=== PATIENT | male | born 1940 | race Caucasian/White ===

== ENCOUNTER → 2016-07-12 | Outpatient (CLI) | payer MEDICARE, MEDICAID | LOC: GMAM 17:01 | PROVIDERS: ATTEND Family Medicine | DX: E03.9 Hypothyroidism, unspecified (principal) ==

== ENCOUNTER → 2016-07-19 | Outpatient (CLI) | payer MEDICARE, MEDICAID | END | disposition home or self-care (01) | LOC: GMAM 18:09 | PROVIDERS: ATTEND Family Medicine | DX: D64.9 Anemia, unspecified (principal); Z12.5 Encounter for screening for malignant neoplasm of prostate | CPT/HCPCS: 82728; 83540; 83550; 85045; G0103 ==

== ENCOUNTER → 2016-08-11 | Outpatient (CLI) | payer MEDICARE, MEDICAID | END | disposition home or self-care (01) | LOC: BFHH 13:45 | PROVIDERS: ATTEND Family Medicine | DX: D64.9 Anemia, unspecified (principal) ==

== ENCOUNTER → 2016-10-11 | Outpatient (CLI) | payer MEDICARE, MEDICAID | END | disposition home or self-care (01) | LOC: GMAM 17:21 | PROVIDERS: ATTEND Family Medicine | DX: D64.9 Anemia, unspecified (principal) ==

== ENCOUNTER → 2016-11-28 | Outpatient (CLI) | payer MEDICARE, MEDICAID | END | disposition home or self-care (01) | LOC: GMA 14:36 | PROVIDERS: ATTEND Nurse Practitioner Acute Care | DX: R31.9 Hematuria, unspecified (principal) ==

== ENCOUNTER → 2016-12-13 | Outpatient (CLI) | payer MEDICARE, MEDICAID | END | disposition home or self-care (01) | LOC: BFHH 15:27 | PROVIDERS: ATTEND Family Medicine | DX: R35.0 Frequency of micturition (principal) ==

== ENCOUNTER → 2016-12-25 | Outpatient (CLI) | payer MEDICARE, MEDICAID | LOC: GMA 14:48 | PROVIDERS: ATTEND Nurse Practitioner Acute Care | DX: R31.9 Hematuria, unspecified (principal) ==

== ENCOUNTER → 2017-01-23 | Outpatient (CLI) | payer MEDICARE, MEDICAID | END | disposition home or self-care (01) | LOC: BFHH 11:24 | PROVIDERS: ATTEND Family Medicine | DX: I73.9 Peripheral vascular disease, unspecified (principal); I42.9 Cardiomyopathy, unspecified; I25.10 Atherosclerotic heart disease of native coronary artery without angina pectoris; F32.1 Major depressive disorder, single episode, moderate ==

== ENCOUNTER → 2017-02-22 | Outpatient (CLI) | payer MEDICARE, MEDICAID | LOC: RESP 13:51 | PROVIDERS: ATTEND Orthopaedic Surgery | DX: Z01.818 Encounter for other preprocedural examination (principal) ==

== ENCOUNTER → 2017-03-28 | Outpatient (CLI) | payer MEDICARE, MEDICAID | END | disposition home or self-care (01) | LOC: BFHH 15:00 | PROVIDERS: ATTEND Family Medicine | DX: I73.9 Peripheral vascular disease, unspecified (principal); I42.9 Cardiomyopathy, unspecified ==

== ENCOUNTER → 2017-07-23 | Outpatient (CLI) | payer MEDICARE, MEDICAID | LOC: BFHH 11:35 | PROVIDERS: ATTEND Family Medicine | DX: I73.89 Other specified peripheral vascular diseases (principal); I25.10 Atherosclerotic heart disease of native coronary artery without angina pectoris; E03.9 Hypothyroidism, unspecified; D64.9 Anemia, unspecified; R97.20 Elevated prostate specific antigen [PSA]; L97.512 Non-pressure chronic ulcer of other part of right foot with fat layer exposed; Z12.5 Encounter for screening for malignant neoplasm of prostate; Z72.0 Tobacco use ==

== ENCOUNTER → 2017-09-11 | Outpatient (CLI) | payer MEDICARE, MEDICAID | END | disposition home or self-care (01) | LOC: GMAM 16:38 | PROVIDERS: ATTEND Family Medicine | DX: E03.9 Hypothyroidism, unspecified (principal) ==

== ENCOUNTER 2017-10-21 15:50 | Emergency (ER) | payer MEDICARE, MEDICAID ==
--- NOTE | 2017-10-21 16:00 | ED.PDOC ---
History of Present Illness - General Chief Complaint: General Stated Complaint: Weakness, fever Time Seen by Provider: 10/21/17 15:59 Source: patient, EMS Exam Limitations: no limitations - History of Present Illness Initial Comments: Emery Peterson 77 y/o male brought by EMS after familly called that he had been feeling weak ,febrile and felt some chills since this am.No diarrhea,no N/V,no dysuria.Stated with some dry cough no hemoptysis no sob. Timing/Duration: 4-6 hours Severity: moderate Improving Factors: nothing Worsening Factors: nothing Associated Symptoms: other - see hpi Allergies/Adverse Reactions: Allergies NO KNOWN ALLERGY Allergy (Verified 12/29/15 02:04) Home Medications: Ambulatory Orders ALPRAZolam [Xanax] 0.5 mg PO PRN 12/29/15 Aspirin [Aspirin Adult Low Dose] 2 tablet PO QAM 12/29/15 Carvedilol 6.25 mg PO BID 12/29/15 Fenofibrate [Tricor] 145 mg PO QAM 12/29/15 Hydrocodone-Acetaminophen [Hydrocodone/Acetaminophen 10-325 mg] 1 - 2 each PO Q6HR PRN 12/29/15 Levothyroxine Sodium 50 mcg PO QAM 12/29/15 Metoclopramide HCl 10 mg PO BEDTIME 12/29/15 Clopidogrel Bisulfate [Plavix] 75 mg PO QAM 03/12/16 DULoxetine HCL [Cymbalta] 30 mg PO BID 03/12/16 Losartan Potassium 25 mg PO QAM 03/12/16 Esomeprazole Magnesium [Nexium] 40 mg PO QAM 02/26/17 Ezetimibe-Simvastatin [Vytorin 10-10 mg] 1 tab PO BEDTIME 02/26/17 Furosemide [Lasix] 20 mg PO PRN PRN MDD DIURESIS 02/26/17 levoFLOXacin [Levaquin] 500 mg PO DAILY 6 Days #6 tab 10/21/17 Review of Systems - Review of Systems Constitutional: States: see HPI, fever EENTM: States: no symptoms reported Respiratory: States: cough - dry Cardiology: States: no symptoms reported Gastrointestinal/Abdominal: States: no symptoms reported Musculoskeletal: States: no symptoms reported Skin: States: no symptoms reported Neurological: States: no symptoms reported All other Systems: Reviewed and Negative, No Change from Baseline Past Medical History (General) - Patient Medical History Hx Seizures: No Hx Stroke: No Hx Dementia: No Hx Asthma: No Hx of COPD: No Hx Cardiac Disorders: Yes - hx [place] Hx Congestive Heart Failure: No Hx Pacemaker: No Hx Hypertension: Yes Hx Thyroid Disease: Yes Hx Diabetes: No Hx Gastroesophageal Reflux: Yes Hx Renal Disease: No Hx Cancer: No Hx of HIV: No Hx Hepatitis C: No Hx MRSA: No Hx Other PMH: Yes - degenerative joint knee;PAD Surgical History: pacemaker, other - angioplasty - Vaccination History Hx Tetanus, Diphtheria Vaccination: No Hx Influenza Vaccination: Yes Hx Pneumococcal Vaccination: Yes - Social History Hx Tobacco Use: No Hx Chewing Tobacco Use: No Hx Alcohol Use: No Hx Substance Use: No Hx Substance Use Treatment: No Hx Depression: No Hx Physical Abuse: No Hx Emotional Abuse: No Hx Suspected Abuse: No - Activities of Daily Living Patient Lives Alone: No - - Female History Patient : No Family Medical History - Family History Mother Family History: Unknown Hx Family Cancer: Yes - mom Physical Exam - Physical Exam General Appearance: Alert, Comfortable, No apparent distress Eye Exam: bilateral normal Ears, Nose, Throat: hearing grossly normal, normal ENT inspection, normal pharynx Neck: non-tender, full range of motion, supple, normal inspection Respiratory: chest non-tender, lungs clear, no respiratory distress Cardiovascular/Chest: normal peripheral pulses, regular rate, rhythm, no murmur Peripheral Pulses: radial,right: 2+, radial,left: 2+ Gastrointestinal/Abdominal: non tender, soft, no organomegaly Back Exam: no CVA tenderness, no vertebral tenderness Extremity: no pedal edema, no calf tenderness Neurologic: alert, oriented x 3 Skin Exam: normal color, warm/dry Lymphatic: no adenopathy Progress - Progress Progress: 10/21/17 16:18 Vital Signs - 8 hr 10/21/17 15:57 Temperature 100.4 F H Pulse Rate [ 94 H Apical] Respiratory 18 Rate Blood Pressure 110/65 [Right Arm] O2 Sat by Pulse 96 Oximetry - Results/Orders Results/Orders: 10/21/17 16:00 BLOOD CULTURE Stat [facility] VIRUS AB PANEL Routine URINALYSIS Stat (Cancelled) 10/21/17 16:02 IV Care:Saline Lock per Protoc QSHIFT Sodium Chloride 0.9% 500Ml [NS 500ml] 500 ml IVS .QD Laboratory Results - last 24 hr 10/21/17 10/21/17 16:07 16:07 WBC 7.6 RBC 3.40 L Hgb 10.2 L Hct 30.2 L MCV 88.8 MCH 30.0 MCHC 33.8 RDW 15.0 H Plt Count 177 MPV 8.7 Absolute Neuts (auto) 5.90 Absolute Lymphs (auto) 0.80 L Absolute Monos (auto) 0.50 Absolute Eos (auto) 0.30 Absolute Basos (auto) 0.00 Neutrophils % 78.0 Lymphocytes % 10.8 L Monocytes % 6.9 Eosinophils % 3.8 Basophils % 0.5 PT 13.5 H INR 1.170 PTT (SP) 36.9 H Sodium 135 Potassium 4.0 Chloride 100 L Carbon Dioxide 25 Anion Gap 14.0 BUN 29 H Creatinine 1.34 H BUN/Creatinine Ratio 21.6 H Random Glucose 101 Serum Osmolality 276.1 Lactic Acid 1.2 Calcium 9.3 Magnesium 1.7 L Total Bilirubin 0.6 Direct Bilirubin 0.2 Indirect Bilirubin 0.4 AST 20 ALT 11 Alkaline Phosphatase 59 Creatine Kinase 49 CK-MB (CK-2) 1.0 CK-MB (CK-2) % Not Reportable Troponin I 0.03 Serum Total Protein 7.3 Albumin 3.4 - EKG/XRAY/CT Comments: HR-86 pacemaker ,rhythm XRAY: chest - mild chronic bronchitic changes lung base /radiologist Departure - Departure Clinical Impression: Malaise and fatigue Fever Qualifiers: Fever type: unspecified Qualified Code(s): R50.9 - Fever, unspecified Time of Disposition: 19:28 Disposition: Discharge to Home or Self Care Condition: Fair Departure Forms: ED Discharge - Pt. Copy, Patient Portal Self Enrollment Instructions: DI for Fever (Symptom) -- Adult Referrals: Tk Pickard MD [Primary Care Provider] - 1-2 Weeks Prescriptions: levoFLOXacin [Levaquin] 500 mg PO DAILY 6 Days #6 tab Home Medications: Ambulatory Orders ALPRAZolam [Xanax] 0.5 mg PO PRN 12/29/15 Aspirin [Aspirin Adult Low Dose] 2 tablet PO QAM 12/29/15 Carvedilol 6.25 mg PO BID 12/29/15 Fenofibrate [Tricor] 145 mg PO QAM 12/29/15 Hydrocodone-Acetaminophen [Hydrocodone/Acetaminophen 10-325 mg] 1 - 2 each PO Q6HR PRN 12/29/15 Levothyroxine Sodium 50 mcg PO QAM 12/29/15 Metoclopramide HCl 10 mg PO BEDTIME 12/29/15 Clopidogrel Bisulfate [Plavix] 75 mg PO QAM 03/12/16 DULoxetine HCL [Cymbalta] 30 mg PO BID 03/12/16 Losartan Potassium 25 mg PO QAM 03/12/16 Esomeprazole Magnesium [Nexium] 40 mg PO QAM 02/26/17 Ezetimibe-Simvastatin [Vytorin 10-10 mg] 1 tab PO BEDTIME 02/26/17 Furosemide [Lasix] 20 mg PO PRN PRN MDD DIURESIS 02/26/17 levoFLOXacin [Levaquin] 500 mg PO DAILY 6 Days #6 tab 10/21/17 Additional Instructions: Call up primary MD office in am October 2017 for followup;Return to ER as needed; Continue with all home medications;Tylenol 500mg one tablet every 6 hours as needed for fever
[2017-10-21] MEDS ORDERED: SODIUM CHLORIDE 0.9% 500ML 500 ML IVS PRN (16:02)
--- NOTE | 2017-10-21 16:23 | RAD ---
EXAM DESCRIPTION: Chest,1 View CLINICAL HISTORY: 77 years Male, fever COMPARISON: March 12, 2016. FINDINGS: Heart size appears borderline. There is atherosclerotic change in the thoracic aorta. Poststernotomy changes are again noted, along with a left subclavian transvenous pacemaker/AICD device. The battery pack overlies the left upper lung field. The lungs appear otherwise essentially clear except for slightly pronounced markings and possible mild peribronchial thickening in the right base. The latter is not much different than on the previous study. No major consolidation is identified. IMPRESSION: Possible mild chronic bronchitic change in the right lung base. Otherwise, no radiographic evidence of acute cardiopulmonary disease. Electronically signed by: Walker Tran MD 10/21/2017 4:21 PM CDT
[2017-10-21] MEDS ORDERED: levoFLOXacin 500MG IV 500 MG in PREMIX BAG 1 BAG IVPB ONE (18:15)
[2017-10-21] MEDS ORDERED: levoFLOXacin 500MG IV 100 ML IVPB ONE (18:27)
[2017-10-21] MEDS ORDERED: ACETAMINOPHEN 500 MG TAB PO ONE (19:43)
[2017-10-21] MEDS ORDERED: ACETAMINOPHEN 500 MG TAB ONE (19:44)
[2017-10-21 20:28] VITALS: BP 107/61; TEMP 100.9; O2SAT 95
== END 2017-10-21 20:00 | disposition home or self-care (01) ==
LOC: ER 15:50
DX: R53.81 Other malaise (principal); R50.9 Fever, unspecified; R05 Cough; I25.2 Old myocardial infarction; I10 Essential (primary) hypertension; E07.9 Disorder of thyroid, unspecified; K21.9 Gastro-esophageal reflux disease without esophagitis; Z95.0 Presence of cardiac pacemaker; Z98.61 Coronary angioplasty status; Z79.82 Long term (current) use of aspirin; Z79.02 Long term (current) use of antithrombotics/antiplatelets
CPT/HCPCS: 36415; 71045; 80048; 80076; 82550; 82553; 83605; 84484; 85025; 85610; 85730; 86788; 86789; 87040; 93005; J1956; J7040

== ENCOUNTER → 2018-04-04 | Outpatient (CLI) | payer MEDICARE, MEDICAID ==
--- NOTE | 2018-04-04 13:35 | RAD ---
EXAM DESCRIPTION: Knee,Left Complete CLINICAL HISTORY: 78 years, Male, KNEE PN COMPARISON: None TECHNIQUE: 4 views of the left knee FINDINGS: No acute fracture or dislocation or bone lesion. Minor medial and patellofemoral joint space narrowing/osteoarthritis. Tiny joint effusion. Diffuse atrophy chronic vascular calcification of the SFA, popliteal, and trifurcation vessels. Slight deformity proximal fibula from remote prior fracture which has healed. IMPRESSION: 1. Osteoarthritis-mild 2. Severe calcific atherosclerosis Electronically signed by: Julian Farrell MD 04/04/2018 1:34 PM CDT
--- NOTE | 2018-04-04 13:48 | RAD ---
EXAM DESCRIPTION: Knee,Right Complete CLINICAL HISTORY: 78 years, Male, KNEE PN COMPARISON: None TECHNIQUE: 4 views of the right knee FINDINGS: Severe osteoarthritis of the right knee all 3 compartments but especially lateral compartment which is completely collapsed. There is resulting valgus deformity. Chondrocalcinosis medial meniscus. Moderate joint effusion. No fracture or bone lesion. Severe diffuse calcific atherosclerosis. IMPRESSION: 1. Severe tricompartmental osteoarthritis with collapse of the lateral compartment Electronically signed by: Julian Farrell MD 04/04/2018 1:47 PM CDT
--- NOTE | 2018-04-04 13:49 | RAD ---
EXAM DESCRIPTION: Pelvis CLINICAL HISTORY: 78 years Male, HIP PN COMPARISON: None. FINDINGS: AP pelvis shows diffuse decreased bone density consistent with osteopenia versus osteoporosis. No fracture. No bone lesion. Severe diffuse calcific atherosclerosis. Scoliosis and degenerative and postop changes of the lower lumbar spine. IMPRESSION: Advanced chronic changes as noted-no acute finding Electronically signed by: Julian Farrell MD 04/04/2018 1:48 PM CDT
== END ==
LOC: RAD 12:22
PROVIDERS: ATTEND Orthopaedic Surgery
DX: M17.11 Unilateral primary osteoarthritis, right knee (principal); M17.12 Unilateral primary osteoarthritis, left knee; M25.561 Pain in right knee; M25.562 Pain in left knee; M25.551 Pain in right hip; M25.552 Pain in left hip

== ENCOUNTER → 2018-04-15 | Outpatient (CLI) | payer MEDICARE, MEDICAID | LOC: GMAM 12:30 | PROVIDERS: ATTEND Family Medicine | DX: E03.9 Hypothyroidism, unspecified (principal); Z12.5 Encounter for screening for malignant neoplasm of prostate | CPT/HCPCS: 84439; 84443; G0103 ==

== ENCOUNTER → 2018-05-14 | Outpatient (CLI) | payer MEDICARE, MEDICAID | LOC: RESP 15:46 | PROVIDERS: ATTEND Family Medicine | DX: Z01.818 Encounter for other preprocedural examination (principal) ==

== ENCOUNTER → 2018-07-04 | Outpatient (CLI) | payer MEDICARE, MEDICAID ==
--- NOTE | 2018-07-04 17:27 | US ---
EXAM DESCRIPTION: Extremity,Lower LT Arteries CLINICAL HISTORY: 78 years Male M79.609 COMPARISON: None. TECHNIQUE: Duplex imaging performed to evaluate the left lower extremity venous structures. Compression imaging and augmentation imaging performed. The common femoral, superficial femoral, popliteal, greater saphenous and posterior tibial veins were examined. FINDINGS: The velocity in the common femoral artery is 91 cm/s. There is a small amount of calcified plaquing. Triphasic waveforms are noted in the common femoral. There are triphasic waveforms in the proximal aspect of the superficial femoral with a normal velocity of 67 cm/s. Scattered areas of calcified and noncalcified plaque are present. There is monophasic flow in the mid and distal superficial femoral. Elevated velocity in the distal SFA consistent with a focal area of stenosis. Very minimal flow in the popliteal with a velocity 10 cm/s. Monophasic tardus parvus flow suggesting severe stenosis. Minimal monophasic flow in the region of the left peroneal. No significant flow in the posterior tibial and dorsalis pedis. IMPRESSION: Diffuse atherosclerotic plaquing throughout the left lower extremity Findings suggest stenosis in the proximal to mid superficial femoral artery with diffusely diseased superficial femoral and popliteal High-grade stenosis in the distal left SFA/proximal popliteal resulting in diminished flow in the popliteal and calf Monophasic flow with diminished velocities peroneal. No significant flow is noted in the posterior tibial or dorsalis pedis. Electronically signed by: Debbi Mosley MD 07/04/2018 5:26 PM [employer]
--- NOTE | 2018-07-04 17:27 | US ---
EXAM DESCRIPTION: Venous,Lower Extremity LT CLINICAL HISTORY: 78 years Male M79.609, left foot and toe pain COMPARISON: None. TECHNIQUE: Duplex imaging performed to evaluate the left lower extremity venous structures. Compression imaging and augmentation imaging performed. The common femoral, superficial femoral, popliteal, greater saphenous and posterior tibial veins were examined. FINDINGS: No thrombus is identified in the left lower extremity venous structures. IMPRESSION: No DVT is identified in the left lower extremity. Electronically signed by: Debbi Mosley MD 07/04/2018 5:26 PM [employer]
== END ==
LOC: US 16:13
PROVIDERS: ATTEND Physician Assistant
DX: I70.202 Unspecified atherosclerosis of native arteries of extremities, left leg (principal); I70.8 Atherosclerosis of other arteries; I73.9 Peripheral vascular disease, unspecified; M79.609 Pain in unspecified limb

== ENCOUNTER 2018-07-05 10:01 | Emergency (ER) | payer MEDICARE, MEDICAID ==
[2018-07-05] MEDS ORDERED: MORPHINE SULFATE INJ 10 MG/ML VIAL IV ONE (10:25)
--- NOTE | 2018-07-05 10:28 | ED.PDOC ---
History of Present Illness - General Time Seen by Provider: 07/05/18 10:23 Source: patient, family Exam Limitations: no limitations - History of Present Illness Initial Comments: patient comes in today for severe high-grade stenosis of the left SS8. Patient states the week ago he started noticing some pain, cramping, and swelling of his left lower extremity. Yesterday he was evaluated as an outpatient with duplex Doppler that showed high-grade stenosiswith diminished flow in the popliteal and calf. The patient was told to report to the emergency room for transfer but he did not come until this morning. Patient states the pain is becoming more and more severe despite hydrocodone that he has a home. Patient states he had no injury prior to this note any symptoms. He does have a history of coronary artery disease status post CABG. Patient does have a defibrillator and pacemaker in place. Patient denies any fever, chills, nausea or vomiting. Occurred: other - worsening over a week Pain - Lower Extremity: severe: Left Calf Method of Injury: unknown Improving Factors: nothing Worsening Factors: movement Allergies/Adverse Reactions: Allergies NO KNOWN ALLERGY Allergy (Verified 12/29/15 02:04) Home Medications: Ambulatory Orders ALPRAZolam [Xanax] 0.5 mg PO PRN 12/29/15 Aspirin [Aspirin Adult Low Dose] 2 tablet PO QAM 12/29/15 Carvedilol 6.25 mg PO BID 12/29/15 Fenofibrate [Tricor] 145 mg PO QAM 12/29/15 Hydrocodone-Acetaminophen [Hydrocodone/Acetaminophen 10-325 mg] 1 - 2 each PO Q6HR PRN 12/29/15 Levothyroxine Sodium 50 mcg PO QAM 12/29/15 Metoclopramide HCl 10 mg PO BEDTIME 12/29/15 Clopidogrel Bisulfate [Plavix] 75 mg PO QAM 03/12/16 DULoxetine HCL [Cymbalta] 30 mg PO BID 03/12/16 Losartan Potassium 25 mg PO QAM 03/12/16 Esomeprazole Magnesium [Nexium] 40 mg PO QAM 02/26/17 Ezetimibe-Simvastatin [Vytorin 10-10 mg] 1 tab PO BEDTIME 02/26/17 Furosemide [Lasix] 20 mg PO PRN PRN MDD DIURESIS 02/26/17 levoFLOXacin [Levaquin] 500 mg PO DAILY 6 Days #6 tab 10/21/17 Review of Systems - Review of Systems Constitutional: States: no symptoms reported. Denies: chills, fever EENTM: States: no symptoms reported Respiratory: States: no symptoms reported. Denies: cough, short of breath, wheezing Cardiology: States: no symptoms reported. Denies: chest pain, palpitations Gastrointestinal/Abdominal: States: no symptoms reported. Denies: nausea, vomiting Musculoskeletal: States: see HPI Past Medical History (General) - Patient Medical History Hx Seizures: No Hx Stroke: No Hx Dementia: No Hx Asthma: No Hx of COPD: No Hx Cardiac Disorders: Yes - hx [place] Hx Congestive Heart Failure: No Hx Pacemaker: No Hx Hypertension: Yes Hx Thyroid Disease: Yes Hx Diabetes: No Hx Gastroesophageal Reflux: Yes Hx Renal Disease: No Hx Cancer: No Hx of HIV: No Hx Hepatitis C: No Hx MRSA: No - Vaccination History Hx Tetanus, Diphtheria Vaccination: No Hx Influenza Vaccination: Yes Hx Pneumococcal Vaccination: Yes - Social History Hx Tobacco Use: No Hx Chewing Tobacco Use: No Hx Alcohol Use: No Hx Substance Use: No Hx Substance Use Treatment: No Hx Depression: No Hx Physical Abuse: No Hx Emotional Abuse: No Hx Suspected Abuse: No - Female History Patient : No Family Medical History - Family History Mother Family History: Unknown Hx Family Cancer: Yes - mom Physical Exam - Physical Exam General Appearance: Alert, Anxious, Obvious distress Eyes, Ears, Nose, Throat: PERRL/EOMI, normal ENT inspection, TMs normal, pharynx normal Neck: non-tender, full range of motion, supple, normal inspection Cardiovascular/Respiratory: regular rate, rhythm, no M/R/G, normal peripheral pulses, no JVD, normal breath sounds Gastrointestinal/Abdominal: non-tender Leg: other - L LE with swelling to the knee with erythema from the knee to toes with not palpable pulse and severe pain with minimal palpation no ulcerations Progress - Progress Progress: will consult vascular for evaluation 07/05/18 10:29 - Results/Orders Results/Orders: Doppler shows high grade stenosis in the distal left SFA/proximal popliteal resulting in diminished flow in the popliteal and calf with velocity of 10 cm/s Departure - Departure Clinical Impression: Stenosis of artery of left lower extremity Disposition: Discharge to Home or Self Care Condition: Fair Referrals: Tk Pickard MD [Primary Care Provider] - 1-2 Weeks Home Medications: Ambulatory Orders ALPRAZolam [Xanax] 0.5 mg PO PRN 12/29/15 Aspirin [Aspirin Adult Low Dose] 2 tablet PO QAM 12/29/15 Carvedilol 6.25 mg PO BID 12/29/15 Fenofibrate [Tricor] 145 mg PO QAM 12/29/15 Hydrocodone-Acetaminophen [Hydrocodone/Acetaminophen 10-325 mg] 1 - 2 each PO Q6HR PRN 12/29/15 Levothyroxine Sodium 50 mcg PO QAM 12/29/15 Metoclopramide HCl 10 mg PO BEDTIME 12/29/15 Clopidogrel Bisulfate [Plavix] 75 mg PO QAM 03/12/16 DULoxetine HCL [Cymbalta] 30 mg PO BID 03/12/16 Losartan Potassium 25 mg PO QAM 03/12/16 Esomeprazole Magnesium [Nexium] 40 mg PO QAM 02/26/17 Ezetimibe-Simvastatin [Vytorin 10-10 mg] 1 tab PO BEDTIME 02/26/17 Furosemide [Lasix] 20 mg PO PRN PRN MDD DIURESIS 02/26/17 levoFLOXacin [Levaquin] 500 mg PO DAILY 6 Days #6 tab 10/21/17 Transfer to Outside Facility - Transfer Information Accepting Provider:: Dr Yee Accepting Facility: [id number] Reason for Transfer: specialized care not available
[2018-07-05 10:32] VITALS: TEMP 97.1
[2018-07-05 11:58] VITALS: BP 125/59; O2SAT 95
== END 2018-07-05 11:57 | disposition home or self-care (01) ==
LOC: ER 10:01
DX: I70.202 Unspecified atherosclerosis of native arteries of extremities, left leg (principal); I25.10 Atherosclerotic heart disease of native coronary artery without angina pectoris; K21.9 Gastro-esophageal reflux disease without esophagitis; I10 Essential (primary) hypertension; E07.9 Disorder of thyroid, unspecified; I25.2 Old myocardial infarction; Z59.0 Homelessness; Z95.1 Presence of aortocoronary bypass graft; Z79.82 Long term (current) use of aspirin; Z79.899 Other long term (current) drug therapy
CPT/HCPCS: 36415; 80053; 85025; 85610; 85730; J2270

== ENCOUNTER 2018-07-11 12:29 | Emergency (ER) | payer MEDICARE, MEDICAID ==
--- NOTE | 2018-07-11 13:13 | RAD ---
Single frontal view pelvis. Two-view right hip. Two-view right femur. Indication: fall wiht pain to right hip Comparison: None. Impression: Comminuted intertrochanteric right femoral neck fracture with proximal migration of the distal fracture fragment by approximately 2 cm. Mild to moderate bilateral hip osteoarthritis. No additional pelvic fractures identified. Lumbosacral fusion construct partially visualized. Extensive scattered vascular calcifications throughout the pelvis and right upper leg. No definite fracture of the distal right femur. Severe right medial knee compartment osteoarthritis. Osteopenia. If this is a new finding, DEXA scan recommended as well as evaluation for possible osteoporosis treatment. Electronically signed by: Jameson Roy MD 07/11/2018 1:11 PM [facility]
--- NOTE | 2018-07-11 13:14 | RAD ---
Single frontal view pelvis. Two-view right hip. Two-view right femur. Indication: fall wiht pain to right hip Comparison: None. Impression: Comminuted intertrochanteric right femoral neck fracture with proximal migration of the distal fracture fragment by approximately 2 cm. Mild to moderate bilateral hip osteoarthritis. No additional pelvic fractures identified. Lumbosacral fusion construct partially visualized. Extensive scattered vascular calcifications throughout the pelvis and right upper leg. No definite fracture of the distal right femur. Severe right medial knee compartment osteoarthritis. Osteopenia. If this is a new finding, DEXA scan recommended as well as evaluation for possible osteoporosis treatment. Electronically signed by: Jameson Roy MD 07/11/2018 1:11 PM [facility]
[2018-07-11] MEDS ORDERED: MORPHINE SULFATE INJ 10 MG/ML VIAL IV ONE (13:38)
--- NOTE | 2018-07-11 13:42 | ED.PDOC ---
History of Present Illness - General Chief Complaint: Trauma Stated Complaint: right hip, left leg pain Time Seen by Provider: 07/11/18 12:37 Source: patient, EMS notes reviewed Exam Limitations: clinical condition - History of Present Illness Initial Comments: The patient is a 78-year-old male presenting to the emergency room after having fallen at home. He does have a history of frequent falls. This time he has severe hip pain after the fall on the right with some mild shortening of the leg and external rotation. He does have a history of severe peripheral vascular disease with apparently a failed revascularization by catheterization last week. That was done on the left. He does have some mild cyanosis to that foot which is apparently chronic. On the right side he does have a thready palpable dorsalis pedis pulse. Foot is mildly pale but not cyanotic. He is able to move the foot well he is able to move the knee well most of his pain is in the right hip. He also does have some pain in the left foot which is again chronic due to ischemia. Apparently there are plans to have the patient revascularized in the [place] in the coming weeks on the left lower extremity. Initially the patient was only able to give a little bit of information as he had had a fairly large amount of fentanyl and transit with EMS mental status has cleared up and he is able to give some more information. Several weeks ago orthopedics here had planned on doing a knee replacement however they were unable to obtain cardiac clearance and therefore it has not been done either. The patient does have a history of coronary artery disease and pacemaker placement. Again he has severe peripheral vascular disease. He does take aspirin and Plavix. He reports that he took them this morning. Timing/Duration: momentarily Severity: severe Improving Factors: nothing Worsening Factors: movement Associated Symptoms: denies symptoms Allergies/Adverse Reactions: Allergies NO KNOWN ALLERGY Allergy (Verified 12/29/15 02:04) Home Medications: Ambulatory Orders ALPRAZolam [Xanax] 0.5 mg PO PRN 12/29/15 Aspirin [Aspirin Adult Low Dose] 2 tablet PO QAM 12/29/15 Carvedilol 6.25 mg PO BID 12/29/15 Fenofibrate [Tricor] 145 mg PO QAM 12/29/15 Hydrocodone-Acetaminophen [Hydrocodone/Acetaminophen 10-325 mg] 1 - 2 each PO Q6HR PRN 12/29/15 Levothyroxine Sodium 50 mcg PO QAM 12/29/15 Metoclopramide HCl 10 mg PO BEDTIME 12/29/15 Clopidogrel Bisulfate [Plavix] 75 mg PO QAM 03/12/16 DULoxetine HCL [Cymbalta] 30 mg PO BID 03/12/16 Losartan Potassium 25 mg PO QAM 03/12/16 Esomeprazole Magnesium [Nexium] 40 mg PO QAM 02/26/17 Ezetimibe-Simvastatin [Vytorin 10-10 mg] 1 tab PO BEDTIME 02/26/17 Furosemide [Lasix] 20 mg PO PRN PRN MDD DIURESIS 02/26/17 levoFLOXacin [Levaquin] 500 mg PO DAILY 6 Days #6 tab 10/21/17 Review of Systems - Review of Systems Constitutional: States: no symptoms reported EENTM: States: no symptoms reported Respiratory: States: no symptoms reported Cardiology: States: no symptoms reported Gastrointestinal/Abdominal: States: no symptoms reported Genitourinary: States: no symptoms reported Musculoskeletal: States: see HPI Skin: States: see HPI Neurological: States: other - chronic pain due to ischemia in his left foot Endocrine: States: no symptoms reported All other Systems: No Change from Baseline Past Medical History (General) - Patient Medical History Hx Seizures: No Hx Stroke: No Hx Dementia: No Hx Asthma: No Hx of COPD: No Hx Cardiac Disorders: Yes - hx MS Hx Congestive Heart Failure: No Hx Pacemaker: Yes Hx Hypertension: Yes Hx Thyroid Disease: Yes Hx Diabetes: No Hx Gastroesophageal Reflux: Yes Hx Renal Disease: No Hx Cancer: No Hx of HIV: No Hx Hepatitis C: No Hx MRSA: No - Vaccination History Hx Tetanus, Diphtheria Vaccination: No Hx Influenza Vaccination: Yes Hx Pneumococcal Vaccination: Yes - Social History Hx Tobacco Use: No Hx Chewing Tobacco Use: No Hx Alcohol Use: No Hx Substance Use: No Hx Substance Use Treatment: No Hx Depression: No Hx Physical Abuse: No Hx Emotional Abuse: No Hx Suspected Abuse: No - Female History Patient : No Family Medical History - Family History Mother Family History: Unknown Hx Family Cancer: Yes - mom Physical Exam - Physical Exam General Appearance: Alert, Other - the patient was initially confused secondary to pain medications but mental status does clear up once they wear off. He is obviously in pain. Eye Exam: bilateral normal Ears, Nose, Throat: normal ENT inspection, normal pharynx Neck: full range of motion, supple Respiratory: lungs clear, normal breath sounds, no respiratory distress, no accessory muscle use Cardiovascular/Chest: normal peripheral pulses, no edema, other - regular rate. Pacemaker in place. Peripheral Pulses: radial,right: 2+, radial,left: 2+, dorsalis pedis,right: 1+, dorsalis pedis,left: 0, posterior tibialis,right: 0, posterior tibialis,left: 0 Gastrointestinal/Abdominal: non tender, soft Rectal Exam: deferred, other - pelvis appears to be stable Back Exam: no CVA tenderness, no vertebral tenderness Extremity: no pedal edema, no calf tenderness, other - chronic cyanosis to the left lower extremity. Neurologic: repeater chief II-XII nml as tested, oriented x 3 - once the pain medications wear off Skin Exam: other - see above Comments: Vital Signs - 24 hr 07/11/18 12:30 Temperature 99.5 F Pulse Rate [ 68 LEFT HAND] Respiratory 16 Rate Blood Pressure 127/63 [Left Arm] O2 Sat by Pulse 100 Oximetry Progress - Progress Progress: 07/11/18 13:44 the patient is a 78-year-old male presenting to emergency room after a fall at home with what appears to be a closed comminuted intertrochanteric right femoral neck fracture with mild proximal migration of the distal fracture fragment by approximately 2 cm. the patient is a high-risk patient and does need to be seen by cardiology prior to procedure. He did apparently take his Plavix this morning. Transferring for higher level of care. CBC, CMP and coags are being drawn for preoperative baseline and will be sent along as they return. transferred for higher level of care. Departure - Departure Clinical Impression: Fall at home Fracture, femur neck Qualifiers: Encounter type: initial encounter Fracture type: closed Laterality: right Qualified Code(s): S72.001A - Fracture of unspecified part of neck of right femur, initial encounter for closed fracture Disposition: Transfer to Hospital Condition: Poor Departure Forms: ED Discharge - Pt. Copy, Patient Portal Self Enrollment Referrals: Tk Pickard MD [Primary Care Provider] - 1-2 Weeks Home Medications: Ambulatory Orders ALPRAZolam [Xanax] 0.5 mg PO PRN 12/29/15 Aspirin [Aspirin Adult Low Dose] 2 tablet PO QAM 12/29/15 Carvedilol 6.25 mg PO BID 12/29/15 Fenofibrate [Tricor] 145 mg PO QAM 12/29/15 Hydrocodone-Acetaminophen [Hydrocodone/Acetaminophen 10-325 mg] 1 - 2 each PO Q6HR PRN 12/29/15 Levothyroxine Sodium 50 mcg PO QAM 12/29/15 Metoclopramide HCl 10 mg PO BEDTIME 12/29/15 Clopidogrel Bisulfate [Plavix] 75 mg PO QAM 03/12/16 DULoxetine HCL [Cymbalta] 30 mg PO BID 03/12/16 Losartan Potassium 25 mg PO QAM 03/12/16 Esomeprazole Magnesium [Nexium] 40 mg PO QAM 02/26/17 Ezetimibe-Simvastatin [Vytorin 10-10 mg] 1 tab PO BEDTIME 02/26/17 Furosemide [Lasix] 20 mg PO PRN PRN MDD DIURESIS 02/26/17 levoFLOXacin [Levaquin] 500 mg PO DAILY 6 Days #6 tab 10/21/17 Transfer to Outside Facility - Transfer Information Accepting Provider:: dr amador Accepting Facility: [facility] Reason for Transfer: required specialist not available
[2018-07-11 14:12] VITALS: TEMP 99.4
[2018-07-11 14:56] VITALS: BP 123/63; O2SAT 97
== END 2018-07-11 14:35 | disposition short-term general hospital (02) ==
LOC: ER 12:29
DX: S72.001A Fracture of unspecified part of neck of right femur, initial encounter for closed fracture (principal); D64.9 Anemia, unspecified; I73.9 Peripheral vascular disease, unspecified; I25.10 Atherosclerotic heart disease of native coronary artery without angina pectoris; I25.2 Old myocardial infarction; I10 Essential (primary) hypertension; E07.9 Disorder of thyroid, unspecified; K21.9 Gastro-esophageal reflux disease without esophagitis; Z79.02 Long term (current) use of antithrombotics/antiplatelets; Z79.82 Long term (current) use of aspirin; Z95.0 Presence of cardiac pacemaker; W19.XXXA Unspecified fall, initial encounter; Y92.009 Unspecified place in unspecified non-institutional (private) residence as the place of occurrence of the external cause
CPT/HCPCS: 36415; 72170; 73502; 73551; 80053; 85025; 85610; 85730; J2270

== ENCOUNTER 2018-09-16 14:46 | Emergency (ER) | payer MEDICARE, MEDICAID ==
[2018-09-16] MEDS ORDERED: HYDROmorphone HCL INJ 2 MG/ML VIAL IV ONE (15:19)
[2018-09-16] MEDS ORDERED: ONDANSETRON INJ 4 MG/2 ML VIAL IV ONE (15:20)
--- NOTE | 2018-09-16 15:23 | ED.PDOC ---
History of Present Illness - General Chief Complaint: General Stated Complaint: pain to LLE Time Seen by Provider: 09/16/18 14:58 Source: patient, EMS Exam Limitations: no limitations - History of Present Illness Initial Comments: Pt has been transported from a rehab in [place] to here for Possible pain control. Pt was advised by Dr Ball's office that he should be transported to [place] for admission to medical service and Ortho consult for possible amputation of L leg . Pt has peripheral vascular disease and severe pain in the left leg for which oral meds have been inadequate. Timing/Duration: unsure Severity: moderate Improving Factors: nothing Worsening Factors: nothing Associated Symptoms: denies symptoms Allergies/Adverse Reactions: Allergies NO KNOWN ALLERGY Allergy (Verified 12/29/15 02:04) Home Medications: Ambulatory Orders ALPRAZolam [Xanax] 0.5 mg PO PRN 12/29/15 Aspirin [Aspirin Adult Low Dose] 2 tablet PO QAM 12/29/15 Carvedilol 6.25 mg PO BID 12/29/15 Fenofibrate [Tricor] 145 mg PO QAM 12/29/15 Hydrocodone-Acetaminophen [Hydrocodone/Acetaminophen 10-325 mg] 1 - 2 each PO Q6HR PRN 12/29/15 Levothyroxine Sodium 50 mcg PO QAM 12/29/15 Metoclopramide HCl [Metoclopramide Hydrochlor] 10 mg PO BEDTIME 12/29/15 Clopidogrel Bisulfate [Plavix] 75 mg PO QAM 03/12/16 DULoxetine HCL [Cymbalta] 30 mg PO BID 03/12/16 Losartan Potassium 25 mg PO QAM 03/12/16 Esomeprazole Magnesium [Nexium] 40 mg PO QAM 02/26/17 Ezetimibe-Simvastatin [Vytorin 10-10 mg] 1 tab PO BEDTIME 02/26/17 Furosemide [Lasix] 20 mg PO PRN PRN MDD DIURESIS 02/26/17 Review of Systems - Review of Systems Constitutional: States: no symptoms reported EENTM: States: no symptoms reported Respiratory: States: no symptoms reported Cardiology: States: no symptoms reported Gastrointestinal/Abdominal: States: no symptoms reported Genitourinary: States: no symptoms reported Musculoskeletal: States: joint pain, muscle pain - L leg Skin: States: no symptoms reported Neurological: States: no symptoms reported Past Medical History (General) - Patient Medical History Hx Seizures: No Hx Stroke: No Hx Dementia: No Hx Asthma: No Hx of COPD: No Hx Cardiac Disorders: Yes - hx [place] Hx Congestive Heart Failure: No Hx Pacemaker: Yes Hx Hypertension: Yes Hx Thyroid Disease: Yes Hx Diabetes: No Hx Gastroesophageal Reflux: Yes Hx Renal Disease: No Hx Cancer: No Hx of HIV: No Hx Hepatitis C: No Hx MRSA: No - Vaccination History Hx Tetanus, Diphtheria Vaccination: No Hx Influenza Vaccination: Yes Hx Pneumococcal Vaccination: Yes - Social History Hx Tobacco Use: Yes Hx Chewing Tobacco Use: No Hx Alcohol Use: No Hx Substance Use: No Hx Substance Use Treatment: No Hx Depression: No Hx Physical Abuse: No Hx Emotional Abuse: No Hx Suspected Abuse: No - Activities of Daily Living Retirement/Assisted Living (if applicable):: [facility] - Female History Patient : No Family Medical History - Family History Mother Family History: Unknown Hx Family Cancer: Yes - mom Physical Exam - Physical Exam General Appearance: Alert, Obvious distress Extremity: calf tenderness, pedal edema, swelling Skin Exam: mottled - L leg Departure - Departure Clinical Impression: Peripheral vascular disease, Ischemic leg pain Disposition: Transfer to Hospital Condition: Fair Departure Forms: ED Discharge - Pt. Copy, Patient Portal Self Enrollment Referrals: Tk Pickard MD [Primary Care Provider] - 1-2 Weeks Home Medications: Ambulatory Orders ALPRAZolam [Xanax] 0.5 mg PO PRN 12/29/15 Aspirin [Aspirin Adult Low Dose] 2 tablet PO QAM 12/29/15 Carvedilol 6.25 mg PO BID 12/29/15 Fenofibrate [Tricor] 145 mg PO QAM 12/29/15 Hydrocodone-Acetaminophen [Hydrocodone/Acetaminophen 10-325 mg] 1 - 2 each PO Q6HR PRN 12/29/15 Levothyroxine Sodium 50 mcg PO QAM 12/29/15 Metoclopramide HCl [Metoclopramide Hydrochlor] 10 mg PO BEDTIME 12/29/15 Clopidogrel Bisulfate [Plavix] 75 mg PO QAM 03/12/16 DULoxetine HCL [Cymbalta] 30 mg PO BID 03/12/16 Losartan Potassium 25 mg PO QAM 03/12/16 Esomeprazole Magnesium [Nexium] 40 mg PO QAM 02/26/17 Ezetimibe-Simvastatin [Vytorin 10-10 mg] 1 tab PO BEDTIME 02/26/17 Furosemide [Lasix] 20 mg PO PRN PRN MDD DIURESIS 02/26/17 Transfer to Outside Facility - Transfer Information Accepting Provider:: Dr Juárez Accepting Facility: [facility] Reason for Transfer: required specialist not available
[2018-09-16 16:03] VITALS: O2SAT 100
[2018-09-16 17:30] VITALS: BP 112/93; TEMP 96.8
== END 2018-09-16 16:15 | disposition short-term general hospital (02) ==
LOC: ER 14:46
DX: I73.9 Peripheral vascular disease, unspecified (principal); M79.605 Pain in left leg; I25.2 Old myocardial infarction; I10 Essential (primary) hypertension; E07.9 Disorder of thyroid, unspecified; K21.9 Gastro-esophageal reflux disease without esophagitis; Z95.0 Presence of cardiac pacemaker; Z79.899 Other long term (current) drug therapy; Z87.891 Personal history of nicotine dependence; Z79.82 Long term (current) use of aspirin
CPT/HCPCS: J1170; J2405

== ENCOUNTER → 2018-11-25 | Outpatient (CLI) | payer MEDICARE, MEDICAID | LOC: GMAM 16:56 | PROVIDERS: ATTEND Family Medicine | DX: E03.9 Hypothyroidism, unspecified (principal); D64.9 Anemia, unspecified ==

== ENCOUNTER → 2019-01-24 | Outpatient (CLI) | payer MEDICARE, MEDICAID ==
--- NOTE | 2019-01-24 14:19 | CT ---
EXAM DESCRIPTION: Lower Extremity w/wo Contrast: Computed Tomography. CLINICAL HISTORY: LEFT LEG PAIN. Left lower extremity above-knee amputation. Swelling and tenderness. Patient unable to wear prosthetic left lower leg. COMPARISON: CT scan of abdomen and pelvis 10/10/2011. TECHNIQUE: Spiral, axial 2.5 x 2.5 mm scans through the left hip and femur before and after 75 mL Optiray 320 nonionic IV contrast. Coronal and sagittal 2.0 mm reconstructions, before and after IV contrast. No adverse contrast reactions. Total Exam DLP: 662.16 mGy-cm. This exam was performed according to our departmental CT dose-optimization program which includes automated exposure control, adjustment of the mA and/or kV according to patient size and/or use of iterative reconstruction technique; to reduce radiation dose to as low as reasonably achievable (ALARA). FINDINGS: A fluid collection with partially enhancing maynard and no calcifications or air-fluid level is visualized abutting the lateral femoral at the stump of the above-knee amputation. This fluid measures 2.5 x 1.1 cm in the transverse plane and 1.2 cm craniocaudal. This abscess is abutting the lateral cortex of the distal femur. Also abutting the lateral muscles abutting the femur in the iliotibial band. Periosteal reaction posterior cortex at the same level. No cortical destruction. No cortical fracture. The marrow of the distal femur demonstrates enhancement measuring approximately 7.7 cm from the stump. The marrow above this level demonstrates a normal fatty appearance, with no enhancement. Marked vascular calcifications medially in the left superficial femoral artery. No abscess or soft tissue mass between the inferior stump and the skin surface. Narrowing of the superior medial left hip joint space. Decreased bone density in the left acetabulum and femur. 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 Sclerotic changes in the mid left femoral head and medial femoral neck are stable since the prior study. No radiodense loose bodies in the joint space. IMPRESSION: 1. 2.5 x 1.2 x 1.1 cm abscess in the lateral soft tissues abutting the stump of the left femoral [id number] amputation. 2. No cortical destruction but small posterior cortical periosteal reaction at the stump. No acute bony changes. 3. Enhancement of the distal 7.7 cm of marrow in the left femur which is more likely to represent cellular marrow. Electronically signed by: Nabeel Olivas MD 01/24/2019 2:18 PM CDT
== END ==
LOC: CT 10:00
PROVIDERS: ATTEND Family Medicine
DX: T87.44 Infection of amputation stump, left lower extremity (principal); Z89.612 Acquired absence of left leg above knee

== ENCOUNTER → 2019-01-28 | Outpatient (CLI) | payer MEDICARE, MEDICAID | LOC: GMAM 14:32 | PROVIDERS: ATTEND Family Medicine | DX: E03.9 Hypothyroidism, unspecified (principal); I10 Essential (primary) hypertension; E78.2 Mixed hyperlipidemia; L02.419 Cutaneous abscess of limb, unspecified ==

== ENCOUNTER → 2019-01-30 | Outpatient (CLI) | payer MEDICARE, MEDICAID ==
--- NOTE | 2019-01-30 11:04 | OP ---
DATE OF PROCEDURE: 01/30/19 PREOPERATIVE DIAGNOSIS: 1. Subcutaneous fluid collection, left [id number] amputation stump. POSTOPERATIVE DIAGNOSIS: 1. Subcutaneous fluid collection, left [id number] amputation stump. PROCEDURE: 1. Sonographically guided aspiration for culture, left leg fluid collection. SURGEON: Amish Heck MD. GRADE RECORDER: None. ANESTHESIA: Local infiltration of 1% lidocaine. INDICATION FOR SURGERY: The patient is a 78-year-old male who is 3+ months status post left [id number] amputation for peripheral vascular occlusive disease. He was doing well, fitted with a prosthesis and developed pain. He denies fever or chills, but a CT scan of his stump revealed a fluid collection in the lateral aspect. He was brought to the Ultrasound Suite today for sonographically guided aspiration for culture. FINDINGS: Approximately 1 mL of blood fluid was obtained. PROCEDURE: After the patient was placed in the supine position, the left leg was examined with the ultrasound device. The fluid collection was identified. The skin of the leg lateral to the ultrasound device was prepped with Betadine. Local infiltration of anesthesia was obtained. An 18-gauge needle was then introduced into the fluid collection and the fluid was aspirated. It was not easily aspirated. It was sent for culture and sensitivity. The patient tolerated the procedure well. Estimated blood loss was less than 5 mL. #[id number]
--- NOTE | 2019-01-30 18:51 | US ---
T EXAM DESCRIPTION: Cyst Aspiration: Ultrasound. CLINICAL HISTORY: LEFT KNEE COMPARISON: CT scan of the lower extremity without and with IV contrast 01/24/2019. TECHNIQUE: Procedure performed by Dr. Heck. Patient gave verbal and written consent. A needle was placed into fluid collection on the lateral aspect of the distal left femur under fluoroscopic guidance. Approximately 1 mL of fluid was obtained. FINDINGS: Echogenic needle seen passing into fluid collection abutting the distal lateral left femur. Visualization limited by shadowing from the femoral cortex. IMPRESSION: Successful, ultrasound-guided needle aspiration of soft tissue fluid collection abutting the distal lateral left femur. Electronically signed by: Nabeel Olivas MD 01/30/2019 6:50 PM CDT
== END ==
LOC: US 10:30
PROVIDERS: ATTEND Surgery
DX: T87.89 Other complications of amputation stump (principal)

== ENCOUNTER → 2019-03-18 | Outpatient (CLI) | payer MEDICARE, MEDICAID ==
--- NOTE | 2019-03-18 11:55 | US ---
EXAM DESCRIPTION: Soft Tissue,Extremity CLINICAL HISTORY: 79 years Male, OTHER COMPLICATIONS OF AMPUTATION STUMP COMPARISON: None. TECHNIQUE: Targeted ultrasound of the left stump was performed. FINDINGS: 3.2 x 1.4 x 1.7 cm fluid collection is identified in the region of the stump. This could represent a postoperative seroma versus resolving hematoma. IMPRESSION: 3.2 x 1.4 x 1.7 cm fluid collection is identified in the region of the stump. This could represent a postoperative seroma versus resolving hematoma. Electronically signed by: Chitra Gonsales MD 03/18/2019 11:53 AM CDT
== END ==
LOC: US 08:50
PROVIDERS: ATTEND Family Medicine
DX: T87.89 Other complications of amputation stump (principal); M79.89 Other specified soft tissue disorders

== ENCOUNTER → 2019-04-16 | Outpatient (CLI) | payer MEDICARE, MEDICAID ==
--- NOTE | 2019-04-18 07:59 | US ---
EXAM DESCRIPTION: Cyst Aspiration: Ultrasound. CLINICAL HISTORY: COMPLICATIONS OF AMPUTATION COMPARISON: Ultrasound-guided cyst aspiration January 30, 2019. TECHNIQUE: Procedure was performed by Dr. Heck with sterile preparation and technique and sterile ultrasound guidance. FINDINGS: Small anechoic collection is noted next to left leg amputation stump measuring 5.0 x 4.1 x3.9 x 2.2 mm. No fluid could be aspirated. IMPRESSION: Attempted ultrasound-guided aspiration of fluid collection with no fluid aspirated. Electronically signed by: Nabeel Olivas MD 04/18/2019 7:58 AM [facility]
== END ==
LOC: US 11:00
PROVIDERS: ATTEND Surgery
DX: T87.89 Other complications of amputation stump (principal)